=== PATIENT | male | born 1945 | race Caucasian/White ===

== ENCOUNTER 2017-09-02 14:23 | Emergency (ER) | payer MEDICARE ==
[2017-09-02 14:36] VITALS: BP 146/66
--- NOTE | 2017-09-02 15:35 | UC ---
Epistaxis Nasal HPI - HPI Summary HPI Summary: 71 year old with nose bleed. Presents Here w/ LEFT nostril nosebleed on/off since 08/21/17. Denies trauma to nose/face. States nosebleed last 10-15 min and occurs about once a day. States he's had hx of dry nose/nosebleed in the past but not this frequent. Now c/o feeling fatigued/tired/shaky d/t frequent nosebleed. Last nosebleed today 0700. Currently no nosebleed. [ End ] - History of Current Complaint Chief Complaint: UCGeneralIllness Stated Complaint: NOSE BLEEDS/WEAK/SHAKEY Time Seen by Provider: 09/02/17 15:33 Hx Obtained From: Patient, Family/Fine Arts Teacher Onset/Duration: Gradual Onset Timing: Intermittent Episode Lasting Severity Initially: Moderate Severity Currently: Mild Character: Light Alleviating Factor(s): Pressure - Allergies/Home Medications Allergies/Adverse Reactions: Allergies Allergy/AdvReac Type Severity Reaction Status Date / Time No Known Allergies Allergy Verified 09/02/17 14:26 Home Medications: Home Medications Tiotropium Oaks-Olodaterol [Stiolto Respimat 2.5-2.5 Mcg/Act] 1 puff DAILY [History Confirmed 09/02/17] metFORMIN* [Glucophage 500 MG TAB *] 1 tab DAILY 09/02/17 [History Confirmed 07/10] PMH/Surg Hx/FS Hx/Imm Hx Previously Healthy: Yes Endocrine History: Diabetes, Dyslipidemia Cardiovascular History: Hypertension Respiratory History: COPD GI/ History: Gastroesophageal Reflux - Surgical History Surgical History: Yes Surgery Procedure, Year, and Place: 2002 Bilat femoral bypass. Hernia - Family History Known Family History: Positive: None - Social History Occupation: Retired Lives: With Family Alcohol Use: Occasionally Substance Use Type: None Smoking Status (MU): Never Smoked Tobacco - Immunization History Most Recent Influenza Vaccination: 2017 Review of Systems Constitutional: Fatigue ENT: Epistaxis Is Patient Immunocompromised?: No All Other Systems Reviewed And Are Negative: Yes Physical Exam Triage Information Reviewed: Yes Appearance: Well-Appearing, No Pain Distress, Well-Nourished Vital Signs: Initial Vital Signs Temp 97.9 F 09/02/17 14:28 Pulse 81 09/02/17 14:28 Resp 18 09/02/17 14:28 BP 146/66 09/02/17 14:28 Pulse Ox 97 09/02/17 14:28 Vital Signs Reviewed: Yes Eye Exam: Normal ENT Exam: Normal ENT: Positive: Pharynx normal, Nasal congestion, TMs normal Dental Exam: Normal Neck exam: Normal Neck: Positive: 1 Respiratory Exam: Normal Cardiovascular Exam: Normal Abdominal Exam: Normal Musculoskeletal Exam: Normal Neurological Exam: Normal Psychological Exam: Normal Skin Exam: Normal Epistaxis Nasal Course/Dx - Course Course Of Treatment: Advise use vaseline BID, humidifier at home, no picking nose, take ASA qOd for 3 doses, folllow up with PCP. EKG shows no acute concerns. VSS. Discussed S/S of TIA or anemia / internal bleed and he does NOT have these. he has concern the stiolto can be the cause and he will d/w PCP. If Sx persist then go to ED. - Differential Dx/Diagnosis Differential Diagnosis/HQI/PQRI: Coagulopathy, Epistaxis, Hypertension, Polyps, Sinusitis, Trauma Provider Diagnoses: epistaxis Discharge - Discharge Plan Condition: Good Disposition: HOME Patient Education Materials: Nosebleed (ED) Referrals: Luis M Rodriguez MD [Primary Care Provider] - 4 Days
== END 2017-09-02 16:19 | disposition home or self-care (01) ==
LOC: UCCORT 14:23
DX: R04.0 Epistaxis (principal); R53.83 Other fatigue; R42 Dizziness and giddiness; E11.9 Type 2 diabetes mellitus without complications; Z79.84 Long term (current) use of oral hypoglycemic drugs; E78.5 Hyperlipidemia, unspecified; I10 Essential (primary) hypertension; J44.9 Chronic obstructive pulmonary disease, unspecified; K21.9 Gastro-esophageal reflux disease without esophagitis
CPT/HCPCS: 93005; 99211; G0463